=== PATIENT | female | born 1980 | race Caucasian/White ===

== ENCOUNTER 2018-12-20 12:55 | Inpatient (IN) ==
[2018-12-20 15:23] LABS: BASO# 0.02 X1000 (0.0-0.2); BASO% 0.2 % (0.0-0.8); EOS# 0.01 X1000 (0.0-0.7); EOS% 0.1 % (0.0-10.0); HEMATOCRIT 30.7 % (37.0-47.0); HEMOGLOBIN 9.6 g/dL (12.0-16.0); IMM GRAN# 0.03 X1000 (0.0-0.04); IMM GRAN% 0.3 % (0.0-0.5); MCH 26.3 PG (27-31); MCHC 31.3 g/dL (33-37); MCV 84.1 FL (81-99); MONO# 0.92 X1000 (0.11-0.59); MONO% 7.9 % (1.7-9.3); MPV 9.4 FL (7.4-10.4); NEUT% 73.5 % (42.2-75.2); PLT 500 X1000 (130-400); RBC 3.65 XMIL (4.2-5.4); RDW 15.2 % (11.5-14.5); WBC 11.68 X1000 (4.8-10.8)
[2018-12-20 16:02] LABS: AGAP 12; ALB/GLOB RATIO 0.7; ALBUMIN 2.9 g/dL (3.5-5.0); ALKALINE PHOSPHATASE 104 U/L (32-104); BUN 7 mg/dL (8-22); CALCIUM 9.7 mg/dL (8.8-10.2); CHLORIDE 97 mmol/L (98-107); COSMO 270; CREATININE 0.4 mg/dL (0.5-0.9); ESTIMATED GFR > 60; GLUCOSE 107 mg/dL (70-104); GOT 9 U/L (10-30); GPT 6 U/L (10-36); POTASSIUM 3.8 mmol/L (3.5-5.1); SODIUM 136 mmol/L (136-145); TCO2 27 mmol/L (25-35); TOTAL BILIRUBIN 0.22 mg/dL (0.20-1.00); TOTAL PROTEIN 6.9 g/dL (6.3-8.3)
[2018-12-20] MEDS ORDERED: TYLENOL PO ONE (16:19)
[2018-12-20] MEDS ORDERED: VANCOMYCIN 1 GM/NS 1 GM/250 ML IVPB IV ONE (16:31)
--- NOTE | 2018-12-20 16:39 | PROVIDER DOCUMENTATION ---
This chart was entered by Marissa Richmond Scribe, acting as scribe for Sacha Bravo CRNP. HPI-Rash/Wound/ReCheck - General Chief Complaint: Abscess Stated Complaint: RT HAND SWOLLEN Time Seen by Provider: 12/20/18 13:58 Source: patient Allergies/Adverse Reactions: Allergies Allergy/AdvReac Type Severity Reaction Status Date / Time morphine Allergy HIVES Verified 12/20/18 14:25 Sulfa (Sulfonamide Allergy Unknown Verified 12/20/18 14:25 Antibiotics) tramadol Allergy ITCHING Verified 12/20/18 14:25 Home Medications: Home Medication List Medication Instructions Recorded Confirmed Last Taken Type Baclofen 20 mg PO TID 05/28/12 05/14/17 05/14/17 14:00 History Hydrocodone/Acetaminophen [[place] 1 tab PO TID 08/27/15 05/14/17 05/14/17 14:00 History 7.5-325 Tablet] Gabapentin 300 mg PO TID 09/23/16 05/14/17 05/14/17 14:00 History Meloxicam [Mobic] 15 mg PO DAILY 03/05/17 05/14/17 05/14/17 14:00 History Clindamycin [Cleocin] 150 mg PO Q6HR #30 cap 05/11/17 05/14/17 05/14/17 14:00 Rx - History of Present Illness-Dermatology Nature of Presenting Problem: Patient is a 38 year old female who presents with abscess to right hand. States abscess has been present for 1 week and getting worse. Report reusing an old heroin needle. States having fever last night. Location: reports: hands (right) Quality: reports: painful Severity: reports: moderate Onset/Duration: reports: 1 week ago Timing: reports: still present, getting worse Context/Associated Symptoms: reports: abscess Identifiable cause?: Yes (reusing her own heroin needle ) Locality of Occurance: Home Similar Symptoms Previously?: Yes Recently seen or treated by another doctor?: No Review of Systems - Adult - REVIEW OF SYSTEMS - ADULT Constitutional: reports: see HPI, fever. denies: chills, fatique Eyes: reports: no symptoms reported Ears, Nose, Mouth & Throat: reports: no symptoms reported Cardiovascular: reports: no symptoms reported Respiratory: reports: no symptoms reported Gastrointestinal: reports: no symptoms reported Genitourinary: reports: no symptoms reported Musculoskeletal: reports: no symptoms reported Integumentary: reports: other (abscess to right hand). denies: hives, itching Neurological: reports: no symptoms reported Psychiatric: reports: no symptoms reported Endocrine: reports: no symptoms reported Hematologic/Lymphatic: reports: no symptoms reported Allergic/Immunologic: reports: no symptoms reported All Other Systems: Reviewed and Negative Past History - Adult - PAST MEDICAL HISTORY-ADULT Review of Records: reports: Old Records Reviewed, Social history reviewed & non- contributory. Major Childhood Illnesses: reports: denies history Cardiovascular: reports: denies history Respiratory: reports: denies history Gastrointestinal: reports: denies history Obstetrical/Gynecological: reports: denies history Genitourinary: reports: denies history Musculoskeletal: reports: denies history Neurological: reports: denies history Endocrine/Immune: reports: thyroid disorder Other Conditions: reports: other (paraplegic) - PRIOR SURGERIES/PROCEDURES Surgical/Procedure History: reports: reviewed, not pertinent - IMMUNIZATION STATUS Childhood Immunizations: See Nurse Assessment Flu Vaccine: See Nurse Assessment - FAMILY HISTORY Family History: reviewed, not pertinent - SOCIAL HISTORY Smoking: cigarettes, less than 1 pack/day Provider spent 3-5 mins advising pt. on dangers of tobacco.: Discussed manners to quit use, and f/u contacts for add'l counseling. Substance Use: denies Physical Exam-General - PHYSICAL EXAM-ADULT Initial Vital Signs Reviewed: Yes - CONSTITUTIONAL General Appearance: alert, no apparent distress. negative: lethargic - RESPIRATORY Respiratory: chest non-tender, lungs clear, normal breath sounds. negative: crackles, rhonchi - CARDIOVASCULAR Cardiovascular: normal peripheral pulses, regular rate, rhythm. negative: tachycardia - GASTROINTESTINAL (ABDOMEN) Abdominal Exam: normal bowel sounds, non tender, soft. negative: rebound - MUSCULOSKELETAL Extremity: erythema (right hand), swelling (right hand from finger tips to above wrist), other (area of fluctuation and induration with central dark blue spot to right hand.) - SKIN Integumentary: erythema (right hand), swelling (right hand), other (area of fluctuation and induration with central dark blue spot to right hand.) - NEUROLOGIC Neurologic: grossly normal. negative: aphasia, facial droop - PSYCHIATRIC Psych/Mental Status: normal mood/affect, oriented x 3. negative: anxious Progress - PLAN OF CARE/RESULTS Progress/Plan/Lab Results: Vital Signs - 8 hr 12/20/18 12:57 Temperature 99.1 F Pulse Rate 109 H Respiratory Rate 22 Blood Pressure 115/71 O2 Sat by Pulse Oximetry 97 Laboratory Results - last 24 hr 12/20/18 12/20/18 12/20/18 14:53 14:53 14:53 WBC 11.68 H RBC 3.65 L Hgb 9.6 L Hct 30.7 L MCV 84.1 MCH 26.3 L MCHC 31.3 L RDW Std Deviation 15.2 H Plt Count 500 H MPV 9.4 Immature Gran % (Auto) 0.3 Neut % (Auto) 73.5 Lymph % (Auto) 18.0 L [place] % (Auto) 7.9 Eos % (Auto) 0.1 Baso % (Auto) 0.2 Immature Gran # (Auto) 0.03 Neut # (Auto) 8.60 H Lymph # (Auto) 2.10 [place] # (Auto) 0.92 H Eos # (Auto) 0.01 Baso # (Auto) 0.02 Sodium 136 Potassium 3.8 Chloride 97 L Carbon Dioxide 27 Anion Gap 12 BUN 7 L Creatinine 0.4 L Estimated GFR/1.73 m2 > 60 BUN/Creatinine Ratio 18 Glucose 107 H Calculated Osmolality 270 Calcium 9.7 Total Bilirubin 0.22 AST 9 L ALT 6 L Alkaline Phosphatase 104 Total Protein 6.9 Albumin 2.9 L Globulin 4.0 Albumin/Globulin Ratio 0.7 Plasma Lactate 0.6 Orders Category Date Time Status BLOOD CULTURE [BLDCUL] Stat Lab 12/20/18 14:53 Ordered CBC WITH ELECTRONIC DIFF [HEME] Stat Lab 12/20/18 14:53 Completed COMPREHENSIVE METABOLIC PANEL [CHEM] Stat Lab 12/20/18 14:53 Completed LACTATE, PLASMA [CHEM] Stat Lab 12/20/18 14:53 Completed UA NIMS W/REFLEX CULT PL [URINALYSIS] Stat Lab 12/20/18 15:10 Ordered URINE DRUG SCREEN Stat Lab 12/20/18 15:10 Ordered WOUND CULTURE INC GRAM STAIN [RM] Routine Lab 12/20/18 15:15 Received Acetaminophen [Tylenol] Med 12/20/18 16:19 Discontinued 1,000 mg PO NOW ONE Vancomycin 1 gm/Ns Med 12/20/18 16:31 Active 1 gm in 250 ml IV NOW Result Diagrams: 12/20/18 14:53 12/20/18 14:53 - CONSULTS/PCP/HOSPITALIST Notification #1 *Consult/PCP/Hospitalist*: Zackery Velasquez Time Discussed: 16:37 Reason/Comments: cellulitis with abscess right hand Consult Disposition: Admit Departure - Departure Date of Disposition Decision: 12/20/18 Time of Disposition Decision: 16:38 DIAGNOSIS: Abscess of hand, right, Drug abuse Cellulitis Qualifiers: Site of cellulitis: other site Qualified Code(s): L03.818 - Cellulitis of other sites Disposition: ADMITTED INPATIENT 09 Certified Medical Emergency: Emergent Condition: Critical Additional Freetext Instructions: ED Follow Up Instructions: You have been treated by a care provider in the Emergency Department. These instructions are being provided to you so you can have an understanding of how to care for yourself upon discharge. Upon discharge from the Emergency Department, you are responsible for making arrangements for follow-up care by a physician of your choice. Take all prescribed medications as directed. Return to the Emergency Department immediately for any new or worsening symptoms. You may call the Physician Referral phone number at [phone] to obtain a list of Physicians who are taking new patients. Referrals and Follow-Ups: None,PCP [Primary Care Provider] - - Critical Care Note This patient required my direct & personal management of CC.: No Attestation - Physician/ NOEL Attestation Patient care was provided by Advanced Practice Provider:: Yes Advanced Practice Provider:: Sacha Bravo Advanced Practice Provider documentation review:: The Mid-level provider documentation, treatment plan and medical decision making was reviewed by the physician who agrees with all treatment and medical decision making by the MLP. The physician spent face to face time with patient:: No Advanced Practice Provider documentation review:: Supervising physician onsite and consulted in the evaluation and care of this patient. The physician did not have a face to face encounter with the patient. This chart was documented by the indicated scribe, (Marissa Richmond Scribe) and accurately reflects the services I performed and decisions made by me, Sacha Bravo CRNP, as attested by the provider's signature.
[2018-12-20 17:28] LABS: URINE SOURCE CLEAN CATCH
[2018-12-20 17:34] LABS: BILIRUBIN URINE NEGATIVE (NEGATIVE); BLOOD URINE NEGATIVE (NEGATIVE); COLOR STRAW; GLUCOSE URINE NEGATIVE (NEGATIVE); KETONE URINE NEGATIVE (NEGATIVE); LEUKOCYTES URINE SMALL (NEGATIVE); NITRITE URINE NEGATIVE (NEGATIVE); PH URINE 7.5; PROTEIN URINE NEGATIVE (NEGATIVE); SP GRAVITY URINE 1.006; TURBIDITY URINE HAZY (CLEAR); UR EPITHELIAL CELLS <10 /HPF (<10); URINE BACTERIA 4+ /HPF; URINE RBC <10 /HPF (<10); UROBILINOGEN URINE NORMAL (NORMAL)
[2018-12-20] MEDS ORDERED: ZOFRAN IV PRN (17:34)
[2018-12-20] MEDS ORDERED: MORPHINE IV PRN (17:42)
[2018-12-20 17:44] LABS: UR AMPHETAMINES QUAL NONE DETECTED (NONE DETECT); UR BARBITUATES QUAL NONE DETECTED (NONE DETECT); UR BENZODIAZEPIN QUAL NONE DETECTED (NONE DETECT); UR CANNABINOIDS QUAL NONE DETECTED (NONE DETECT); UR COCAINE QUAL NONE DETECTED (NONE DETECT); UR METHADONE QUAL NONE DETECTED (NONE DETECT); UR OPIATES QUAL PRESUMPTIVE POSITIVE (NONE DETECT); UR OXYCODONE QUAL NONE DETECTED (NONE DETECT); UR PCP QUAL NONE DETECTED (NONE DETECT)
[2018-12-20] MEDS ORDERED: VANCOMYCIN IV PER PHARMACY MISC SCH (17:45)
--- NOTE | 2018-12-20 18:25 | Diag Imaging Result Doc PS360 ---
EXAM: HAND 2 VIEWS RIGHT - 12/20/2018 HISTORY: abcess TECHNIQUE: Portable right hand two views COMPARISON: None. FINDINGS: There is generalized soft tissue swelling. This is most prominent at the dorsal proximal hand. There is no subcutaneous gas identified. There is no opaque foreign body identified. There are no bony erosive or destructive changes identified. There is smooth deformity of the distal fifth metacarpal which may relate to developmental variant or old injury. There is no evidence of recent fracture or dislocation. IMPRESSION: Substantial soft tissue swelling. No evidence of osteomyelitis. Please note that early osteomyelitis can be radiographically occult. Electronically signed by Fish Palmer 12/20/2018 6:22 PM
[2018-12-20] MEDS: DEMEROL IV PRN (19:42)
[2018-12-20] MEDS ORDERED: VANCOMYCIN 500 MG/NS 500 MG/100 ML IVPB IV ONE (20:00)
[2018-12-20] MEDS: PRILOSEC PO SCH (20:54)
[2018-12-20] MEDS: ATARAX PO SCH (20:55)
[2018-12-20] MEDS: ROBAXIN PO SCH (22:07)
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
[2018-12-20] MEDS: ZOSYN 3.375 GM in NS 50 ML IV SCH (22:15)
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
[2018-12-21] MEDS: DEMEROL IV PRN ×7 (00:18→23:21)
[2018-12-21] MEDS: ROBAXIN PO SCH ×2 (03:14→09:17)
[2018-12-21] MEDS: ATARAX PO SCH ×3 (03:14→21:18)
[2018-12-21] MEDS: ZOSYN 3.375 GM in NS 50 ML IV SCH ×3 (03:18→16:48)
[2018-12-21] MEDS: PRILOSEC PO SCH (06:23)
[2018-12-21 07:22] LABS: HEMATOCRIT 33.5 % (37.0-47.0); HEMOGLOBIN 11.1 g/dL (12.0-16.0); MCH 28.2 PG (27-31); MCHC 33.1 g/dL (33-37); MCV 85.2 FL (81-99); MPV 9.5 FL (7.4-10.4); RBC 3.93 XMIL (4.2-5.4); RDW 15.2 % (11.5-14.5); WBC 11.73 X1000 (4.8-10.8)
[2018-12-21 08:25] LABS: FERRITIN 100 ng/mL (13-150)
[2018-12-21 08:26] LABS: AGAP 12; BUN 8 mg/dL (8-22); CALCIUM 9.2 mg/dL (8.8-10.2); CHLORIDE 104 mmol/L (98-107); COSMO 279; CREATININE 0.5 mg/dL (0.5-0.9); ESTIMATED GFR > 60; GLUCOSE 92 mg/dL (70-104); IRON SATURATION 9 %; POTASSIUM 4.4 mmol/L (3.5-5.1); SODIUM 141 mmol/L (136-145); TCO2 25 mmol/L (25-35); TIBC 190 ug/dL; TOTAL IRON 18 ug/dL (49-151); UNBOUND IRON 172 ug/dL (112-346)
[2018-12-21] MEDS: VANCOMYCIN 1,300 MG in NS 250 ML IV SCH ×2 (09:18→21:17)
--- NOTE | 2018-12-21 10:16 | ECHO REPORT ---
ORDER DATE: 12/21/2018 ECHOCARDIOGRAPHIC MEASUREMENTS: 1. Interventricular septum 1.1. 2. Left ventricular posterior wall 0.9. 3. Diastolic diameter 3.8. 4. Left atrium 3.2. 5. Aorta 2.8. FINDINGS: 1. Aortic valve leaflets are trileaflet. 2. Mitral valve was normal. 3. Tricuspid valve was normal. 4. Pulmonic valve was normal. 5. Normal left ventricular cavity size. Estimated ejection fraction of 65%. 6. Peak velocity across the aortic valve less than 2 m/sec. There is no aortic stenosis or regurgitation. 7. There is trace mitral regurgitation. 8. Trace tricuspid regurgitation. Peak velocity across the tricuspid valve less than 2 m/sec. 9. There is no pericardial effusion or obvious intracardiac mass or thrombus seen. cc: MD Zhane Sheldon CRNP
[2018-12-21] MEDS ORDERED: XYLOCAINE-MPF 2% ONE (12:45)
[2018-12-21] MEDS ORDERED: FENTANYL ONE (12:45)
[2018-12-21] MEDS ORDERED: ZOFRAN ONE (12:46)
[2018-12-21] MEDS ORDERED: DIPRIVAN 1% ONE (12:46)
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
[2018-12-21] MEDS ORDERED: VERSED ONE (13:34)
[2018-12-21] MEDS ORDERED: PRECEDEX ONE (14:02)
[2018-12-21] MEDS: DILAUDID ONE ×4 (14:32→14:50)
[2018-12-21] MEDS ORDERED: LR 500 ML ONE (14:57)
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
--- NOTE | 2018-12-21 19:37 | OPERATIVE NOTE ---
PROCEDURE DATE: 12/21/2018 PREOPERATIVE DIAGNOSIS: Right hand abscess. POSTOPERATIVE DIAGNOSIS: Right hand abscess. PROCEDURE: Right hand irrigation and debridement. SURGEON: Sukhdeep Osman MD RO[employer] TRUCK DRIVER: JEANNETTE Parekh, who was an integral part of the case helping with all aspects of the case. She helped increase our OR efficiency greatly. ANESTHESIA: General with LMA. TOURNIQUET TIME: Less than 30 minutes to the forearm. ESTIMATED BLOOD LOSS: About 10 mL. DISPOSITION: To PACU, hemodynamically stable. INDICATION FOR PROCEDURE: Ms. Chavez is a 38-year-old female who presented to the emergency department last night. She was admitted per the hospitalist service for hand abscess. I discussed with her about operative intervention this morning. I went over with her the procedure, risks, benefits, potential complications, and she expressed understanding and wished to proceed. DESCRIPTION OF PROCEDURE: Ms. Chavez was identified in the preoperative holding area. The right hand was marked as correct surgical site. She was then wheeled to the operating room, placed supine on the operating table. All bony prominences well padded. She was induced under general anesthesia. LMA was placed. Right upper extremity was then prepped with Betadine solution and draped in normal sterile fashion. Surgical pause was performed. We identified the correct patient, correct side, and the correct procedure. Preoperative antibiotics were given. Esmarch was used as the tourniquet at the level of the forearm. We then made an incision over the dorsal aspect of the hand where all the purulence had sort of come to a head. Right when I made the incision there was a lot of thick whitish-yellow discharge from the hand. We cultured that and then expressed all of that purulence out. I was able to get that purulence all evacuated. We then irrigated copiously with normal saline the whole hand. That was exposed, and then we checked that wound. I did not see any areas where infection dove deep into the hand. The fascia layer was all intact, and then we did squeeze multiple areas to see if there was any pus coming up from deep, and it was not so I felt that this was all more superficial. I then irrigated with some Vashe and then more normal saline, and everything looked nice and clean. I then packed it with Vashe-soaked Kerlix and then put a soft dressing on top. She was then awakened from general anesthesia, moved to her own bed and taken to PACU in stable condition. Postoperatively, she will be nonweightbearing right upper extremity. I want her moving the fingers so they do not get stiff, and we will continue to check on her. We will more than likely be able to get Wound Care to see her on Monday. cc: Sukhdeep Osman MD
[2018-12-21] MEDS: PERIDEX MT SCH (21:19)
[2018-12-22] MEDS: ZOSYN 3.375 GM in NS 50 ML IV SCH ×4 (00:35→18:00)
[2018-12-22] MEDS: DEMEROL IV PRN ×2 (03:51→06:54)
[2018-12-22] MEDS: ATARAX PO SCH (05:50)
[2018-12-22 07:13] LABS: BASO# 0.01 X1000 (0.0-0.2); BASO% 0.1 % (0.0-0.8); EOS# 0.04 X1000 (0.0-0.7); EOS% 0.3 % (0.0-10.0); HEMATOCRIT 31.3 % (37.0-47.0); HEMOGLOBIN 9.7 g/dL (12.0-16.0); IMM GRAN# 0.02 X1000 (0.0-0.04); IMM GRAN% 0.2 % (0.0-0.5); LYMPH# 1.94 X1000 (1.2-3.4); LYMPH% 15.9 % (20.5-51.1); MCH 25.9 PG (27-31); MCV 83.5 FL (81-99); MONO# 0.73 X1000 (0.11-0.59); MPV 9.5 FL (7.4-10.4); NEUT# 9.43 X1000 (1.4-6.5); NEUT% 77.5 % (42.2-75.2); PLT 512 X1000 (130-400); RBC 3.75 XMIL (4.2-5.4); RDW 15.2 % (11.5-14.5); WBC 12.17 X1000 (4.8-10.8)
[2018-12-22] MEDS: PRILOSEC PO SCH (07:16)
[2018-12-22 07:52] LABS: AGAP 11; ALB/GLOB RATIO 0.7; ALKALINE PHOSPHATASE 99 U/L (32-104); BUN 6 mg/dL (8-22); CALCIUM 9.5 mg/dL (8.8-10.2); CHLORIDE 107 mmol/L (98-107); COSMO 281; CREATININE 0.5 mg/dL (0.5-0.9); ESTIMATED GFR > 60; GLUCOSE 108 mg/dL (70-104); GOT 8 U/L (10-30); GPT 5 U/L (10-36); POTASSIUM 3.8 mmol/L (3.5-5.1); SODIUM 142 mmol/L (136-145); TCO2 24 mmol/L (25-35); TOTAL PROTEIN 7.1 g/dL (6.3-8.3)
[2018-12-22] MEDS: NICODERM PATCH TD SCH ×2 (08:55→08:57)
[2018-12-22] MEDS: PERIDEX MT SCH ×2 (08:56→21:03)
[2018-12-22] MEDS: VANCOMYCIN 1,300 MG in NS 250 ML IV SCH ×2 (08:57→21:03)
[2018-12-22] MEDS: PERCOCET-5 PO PRN ×3 (09:09→17:27)
[2018-12-22] MEDS: DILAUDID IV PRN ×4 (10:16→21:55)
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
--- NOTE | 2018-12-22 11:23 | ORTHOPAEDICS PROGRESS NOTE ---
DATE: 12/22/2018 SUBJECTIVE: Ms. Chavez when I went into her room this morning was not in there but then I found her in the hallway in her wheelchair coming back to the room overall feeling okay. She says that she feels like she can move her hand better this morning. OBJECTIVE: Right Upper Extremity: Her dressing is clean, dry, and intact. She is able to move all of the fingers really well. She has good sensation to light touch in all the fingers and her fingers are a little bit swollen but not as bad as they were. ASSESSMENT: Status post right hand irrigation and debridement for abscess. PLAN: We will leave the dressing intact today. We will plan on changing it tomorrow. We will use Vashe for the dressing change. I discussed with Ms. Chavez about elevating the hand to get a lot of the swelling and edema out and I am okay with her moving all of her fingers as well to help with the swelling. We will change the dressing tomorrow. cc: Sukhdeep Osman MD
[2018-12-22] MEDS ORDERED: ZOSYN ONE (11:58)
[2018-12-22] MEDS: ROBAXIN PO SCH ×2 (13:18→17:28)
[2018-12-23] MEDS: ZOSYN 3.375 GM in NS 50 ML IV SCH ×4 (00:55→17:23)
[2018-12-23] MEDS: DILAUDID IV PRN ×6 (01:28→18:33)
[2018-12-23] MEDS: PERCOCET-5 PO PRN ×5 (03:00→21:32)
[2018-12-23] MEDS: PRILOSEC PO SCH (06:17)
[2018-12-23] MEDS: ROBAXIN PO SCH ×3 (09:04→17:23)
[2018-12-23] MEDS: VANCOMYCIN 1,300 MG in NS 250 ML IV SCH ×2 (09:04→20:24)
[2018-12-23] MEDS: PERIDEX MT SCH ×2 (09:04→20:24)
[2018-12-23] MEDS: NICODERM PATCH TD SCH (09:04)
--- NOTE | 2018-12-23 12:28 | ORTHOPAEDICS PROGRESS NOTE ---
DATE: 12/23/2018 SUBJECTIVE: Peri Chavez is a 38-year-old female, patient of Dr. Osman, who did an irrigation and debridement of her hand on Monday. She has no new complaints. OBJECTIVE: Her dressing is clean, dry, intact. She can flex and extend her fingers. She has brisk capillary refill and intact sensation to light touch. LABORATORY DATA: Her cultures have come back with 2+ gram-positive cocci on the Gram stain, but I see no definitive bacteria or sensitivity at this time. ASSESSMENT: Stable right hand incision and drainage. PLAN: Dr. Osman wrote in his progress note yesterday to change her dressing today. Therefore, I have placed an order for the nurse to change her dressing and repack the wound with Vashe-soaked dressing and 4x4s and an [place] wrap. Once her culture sensitivities come back tomorrow, hopefully she can be discharged home on p.o. antibiotics versus arranging for IV antibiotics. cc: Romulo Chilel MD
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
[2018-12-24] MEDS: ZOSYN 3.375 GM in NS 50 ML IV SCH ×2 (01:03→06:40)
[2018-12-24] MEDS: DILAUDID IV PRN ×2 (02:34→10:25)
[2018-12-24] MEDS: PERCOCET-5 PO PRN ×2 (03:45→07:57)
[2018-12-24] MEDS: PRILOSEC PO SCH (06:40)
[2018-12-24 07:39] VITALS: BP 145/80
[2018-12-24] MEDS ORDERED: KEFLEX PO SCH (08:15)
[2018-12-24] MEDS: VANCOMYCIN 1,300 MG in NS 250 ML IV SCH (09:23)
[2018-12-24] MEDS: PERIDEX MT SCH (09:24)
[2018-12-24] MEDS: ROBAXIN PO SCH (09:24)
[2018-12-24] MEDS: NICODERM PATCH TD SCH (09:27)
[2018-12-24] MEDS ORDERED: DULCOLAX PR ONE (09:45)
--- NOTE | 2018-12-24 19:15 | ORTHOPAEDICS PROGRESS NOTE ---
DATE: 12/24/2018 SUBJECTIVE DATA: Ms. Chavez is lying comfortably in bed. She is having some pain in the hand, but overall doing well. She is ready to go home today. OBJECTIVE DATA: We took down the surgical dressing. Overall, that area looks pretty good. She does have a large area of exposed fascia, but there is no erythema or drainage. She is able to flex and extend all the fingers. She has brisk capillary refill and good sensation. ASSESSMENT: Status post right hand irrigation and debridement. PLAN: We changed the dressing again today. We are going to continue to do wet-to-dry dressings. The plan is for Ms. Chavez to go home today on oral antibiotics. It looks like Keflex is the plan. We want to follow up with her in the office in 1 week. She is going to change that dressing daily and as needed. She is going to call with any changes to that wound. Dictated by JEANNETTE Parekh for Sukhdeep Osman MD cc: JEANNETTE Parekh MD
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
== END 2018-12-24 11:40 | disposition home or self-care (01) | DRG 580 ==
LOC: ED 12:55 → SUATTDRO 18:06 → 4N 18:06
PROVIDERS: ATTEND Internal Medicine